=== PATIENT | female | born 1950 | race Caucasian/White ===

== ENCOUNTER 2024-09-10 15:49 | Emergency (ER) | payer OTHER ==
[2024-09-10 15:56] VITALS: TEMP 99.8; BMI 31.8
[2024-09-10 17:29] LABS: ABSOLUTE IMMATURE GRANULOCYTES 0.06 x10^3/uL (0.0-0.031); BASOPHILS # 0.05 x10^3/uL (0.01-0.08); EOSINOPHIL % 1.9 % (0.7-5.8); EOSINOPHILS # 0.23 x10^3/uL (0.04-0.36); MCHC 31.7 g/dl (32.2-35.5); MEAN CELL VOLUME 97.7 fl (79.4-94.8); MEAN PLT VOLUME 10.7 fl (9.4-12.3); MONOCYTE # 0.71 x10^3/uL (0.24-0.86); MONOCYTE % 5.9 % (4.7-12.5); RDW 12.4 % (12.4-16.6)
[2024-09-10] MEDS ORDERED: IPRATROPIUM BR 0.02% 0.5 MG/2.5 ML VIAL.NEB. NEB ONE (17:42)
[2024-09-10] MEDS ORDERED: ACETAMINOPHEN INJECTION 100 ML ONE (17:43)
[2024-09-10 17:48] LABS: CO2 27.0 mmol/L (21-32); GLUCOSE,RANDOM 198.0 mg/dL (74-106)
[2024-09-10 17:51] LABS: CREATININE 0.8 mg/dL (0.55-1.3); SGOT/AST 22.0 U/L (15-37); SGPT/ALT 31.0 U/L (13-61)
[2024-09-10 17:52] LABS: TOT PROT 7.3 g/dl (6.4-8.2)
[2024-09-10 17:54] LABS: ALK PHOS 85.0 U/L (45-117)
[2024-09-10] MEDS: IPRATROPIUM BR 0.02% 0.5 MG/2.5 ML VIAL.NEB. NEB ONE (17:56)
[2024-09-10] MEDS: ACETAMINOPHEN 1000 MG/100 ML BAG IVPB ONE (17:56)
[2024-09-10 22:54] VITALS: BP 115/72; PULSE 82; RESP 19
== END 2024-09-10 21:15 | disposition home or self-care (01) ==
LOC: JER 15:49
PROC: 3E033NZ Introduction of Analgesics, Hypnotics, Sedatives into Peripheral Vein, Percutaneous Approach (ICD-10-PCS; principal; 2024-09-10)
PROC: 3E0F7GC Introduction of Other Therapeutic Substance into Respiratory Tract, Via Natural or Artificial Opening (ICD-10-PCS; 2024-09-10)
DX: R06.02 Shortness of breath (principal); R05.9 Cough, unspecified; R61 Generalized hyperhidrosis; R50.9 Fever, unspecified; R51.9 Headache, unspecified
CPT/HCPCS: 36415; 71046-TC-FY; 71275-TC; 80053; 84484; 85025; 85379; 87637-QW; 93005; 93010; 94640; 96374; 99285-25; Q9967